=== PATIENT | male | born 1960 | race Caucasian/White ===

== ENCOUNTER 2022-07-11 00:58 | Inpatient (IN) ==
[2022-07-11] MEDS ORDERED: MECLIZINE HCL 25 MG TAB PO STA (01:10)
[2022-07-11] MEDS ORDERED: SODIUM CHLORIDE 0.9% 1000ML 1,000 ML IV ONE (01:10)
[2022-07-11 01:27] LABS: Basophils # (auto) 0.04 K/uL (0-0.2); Basophils % (auto) 0.4 %; Eosinophils # (auto) 0.14 K/uL (0-0.50); Eosinophils % (auto) 1.5 %; Hematocrit (blood only) 43.8 % (42.0-52.0); Hemoglobin 15.8 g/dl (14.0-18.0); Immature Granulocytes # (auto) 0.06 K/uL (0.01-0.20); Immature Granulocytes % (auto) 0.6 %; Lymphocytes # (auto) 2.46 K/uL (1.2-3.4); Lymphocytes % (auto) 26.1 %; Mean Corpuscular Hemoglobin 32.7 pg (25.0-34.0); Mean Corpuscular Hgb Conc 36.1 g/dL (32.0-36.0); Mean Corpuscular Volume 90.7 fL (80.0-100.0); Mean Platelet Volume 9.8 fL (9.4-12.4); Monocytes # (auto) 0.78 K/uL (0.11-0.59); Monocytes % (auto) 8.3 %; Neutrophils # (auto) 5.96 K/uL (1.40-6.50); Neutrophils % (auto) 63.1 %; Platelet Count 204 K/uL (130-400); RDW Coefficient of Variation 12.3 % (11.5-14.5); RDW Standard Deviation 40.5 fL (36.4-46.3); Red Blood Count 4.83 M/uL (4.70-6.10); White Blood Count 9.44 K/ul (4.8-10.8)
--- NOTE | 2022-07-11 01:27 | Emergency Department Note ---
History of Present Illness General Chief complaint: Dizziness Stated complaint: Nausea, Vomiting Time Seen by Provider: 07/11/22 01:01 History of Present Illness This 61-year-old male patient presents to the emergency department via EMS for evaluation of dizziness. He states at 10 PM tonight he developed acute onset of dizziness, nausea, and diaphoresis. He states he feels like both himself and the room are spinning. Had a more mild episode of dizziness about 1 month ago and was seen by his PCP with unremarkable work-up. That episode of dizziness quickly resolved with meclizine. He is not sure what work-up was performed. Upon review of the patient's medical record he had a brain MRI on 06/14/2022 that showed no acute intracranial abnormality. The patient denies any chest pain, shortness of breath, abdominal pain, fever, cough, or URI symptoms. No known injury or trauma. The patient was given Zofran 4 mg IV in the ambulance, but no improvement of his symptoms. He is not on any blood thinners. Home Medications Medication Instructions Recorded Confirmed Type netarsudil 0.02 %-latanoprost 1 drops ophthalmic (eye) QPM 04/26/19 07/11/22 History 0.005 % eye drops (Rocklatan) cholecalciferol (vitamin D3) 10 2,000 unit PO QAM 04/29/21 07/11/22 History mcg (400 unit) tablet (Vitamin D3) cyclobenzaprine 5 mg tablet 5 - 10 mg PO HS #60 tabs 05/24/22 07/11/22 Rx meclizine 25 mg tablet 25 mg PO TID #90 tabs 05/24/22 07/11/22 Rx atorvastatin 10 mg tablet 10 mg PO QPM #90 tabs 05/27/22 07/11/22 Rx omeprazole 20 mg capsule,delayed 20 mg PO QAM #90 caps 05/27/22 07/11/22 Rx release lisinopril 10 mg tablet 10 mg PO QAM #90 tabs 06/13/22 07/11/22 Rx Allergies Allergy/AdvReac Type Severity Reaction Status Date / Time ketorolac AdvReac Severe Hallucinati Verified 06/03/22 08:29 ng Past Med/Surg History Medical History Acid reflux Degenerative tear of left medial meniscus Glaucoma HTN (hypertension) Hyperlipidemia Superficial thrombophlebitis hx Surgical History History of colonoscopy History of esophagogastroduodenoscopy (EGD) History of open reduction and internal fixation (ORIF) procedure Left leg History of surgical removal of meniscus of knee S/P hernia surgery inguinal & umbilical repairs S/P left knee arthroscopy (~04/2020) S/P repair of hydrocele HX S/P wisdom tooth extraction HX Family History Father Diabetes Mother Dementia Other No family history of adverse response to anesthesia Denies family history of Ovarian cancer Prostate cancer Myocardial infarction Breast cancer Colorectal cancer Social History Smoking Status: Never smoker Second Hand Exposure: No; Do You Dip or Chew Tobacco: No; Hx Alcohol Use: Yes Alcohol type: beer, wine and hard liquor Alcohol Intake Frequency: 2-3 x/Week Hx Substance Use: No Preferred Language: Algerian Communication Ability: Effective Visual Impairment: No Limitations Hearing Ability: Hard of Hearing Irrigation Pump Installer Required: No Beliefs That Will Affect Care: None marital status: Current Living Situation: Alone Current Living Situation Comment: FRIEND LIVES HERE SOMETIMES current occupational status: employed 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 Physical Exam Vital Signs Vital Signs - 24 hr 07/11/22 01:06 07/11/22 01:09 07/11/22 01:38 Temperature 36.5 C Temperature Source Oral Pulse Rate 79 82 83 Pulse Rate from SpO2 Sensor Pulse Rhythm Regular Respiratory Rate 18 Respiratory Effort / Characteristics Non-Labored Spontaneous Respiratory Depth Normal Respiratory Pattern Regular Blood Pressure 181/103 H Blood Pressure Mean 129 Blood Pressure Position Sitting Pulse Oximetry 99 100 Oxygen Delivery Method Room Air Room Air Oxygen Flow Rate Sepsis Recent Fever Within 48 Hours No Sepsis New/Unexplained Change in Mental Status N/A Sepsis Action Taken by Nursing No Action Required 07/11/22 01:13 07/11/22 01:13 07/11/22 05:04 Temperature Temperature Source Pulse Rate 70 67 Pulse Rate from SpO2 Sensor 72 Pulse Rhythm Respiratory Rate 15 Respiratory Effort / Characteristics Respiratory Depth Respiratory Pattern Blood Pressure 180/98 H Blood Pressure Mean 125 Blood Pressure Position Pulse Oximetry 98 Oxygen Delivery Method Nasal Cannula Oxygen Flow Rate 2 Sepsis Recent Fever Within 48 Hours Sepsis New/Unexplained Change in Mental Status Sepsis Action Taken by Nursing 07/11/22 04:00 07/11/22 05:00 07/11/22 06:10 Temperature Temperature Source Pulse Rate 75 64 75 Pulse Rate from SpO2 Sensor 61 64 75 Pulse Rhythm Respiratory Rate 20 17 16 Respiratory Effort / Characteristics Respiratory Depth Respiratory Pattern Blood Pressure Blood Pressure Mean Blood Pressure Position Pulse Oximetry 97 97 98 Oxygen Delivery Method Nasal Cannula Nasal Cannula Nasal Cannula Oxygen Flow Rate 2 2 2 Sepsis Recent Fever Within 48 Hours Sepsis New/Unexplained Change in Mental Status Sepsis Action Taken by Nursing 07/11/22 06:10 07/11/22 06:30 07/11/22 06:30 Temperature Temperature Source Pulse Rate 80 Pulse Rate from SpO2 Sensor 80 Pulse Rhythm Respiratory Rate 20 Respiratory Effort / Characteristics Respiratory Depth Respiratory Pattern Blood Pressure 142/73 H 149/80 H Blood Pressure Mean 96 103 Blood Pressure Position Pulse Oximetry 98 Oxygen Delivery Method Nasal Cannula Oxygen Flow Rate 2 Sepsis Recent Fever Within 48 Hours Sepsis New/Unexplained Change in Mental Status Sepsis Action Taken by Nursing VITALS: Vitals are noted on the nurse's note and reviewed by myself. GENERAL: The patient appears uncomfortable and nauseous. Non toxic, no acute distress, non-diaphoretic. SKIN: Capillary refill <2 sec. EARS: External auditory canals clear, tympanic membranes pearly zambrano without erythema or effusion bilaterally. EYES: The patient was having trouble keeping his eyes opened because of increased dizziness with his eyes opened. PERRLA. Conjunctivae without injection, sclerae without icterus. Pulsatile horizontal nystagmus present. Negative HINTS exam. FACE: No facial droop. Normal strength and movement of the facial muscles as well as neck muscles. NOSE: Patent without discharge. MOUTH: Mucous membranes moist. Uvula midline. Airway patent. NECK: Supple without nuchal rigidity. No tenderness to palpation of the cervical spine or paraspinal muscles. HEART: Regular rate and rhythm without murmurs gallops or rubs. LUNGS: Clear to auscultation bilaterally without wheezes, rales or rhonchi. No retractions or accessory muscle use. ABDOMEN: Positive bowel sounds x 4. Normal tympanic percussion. Soft, nontender, without masses or organomegaly. Kowalski sign negative. No guarding or rebound tenderness. No focal RLQ or LLQ tenderness. MUSCULOSKELETAL: Full range of motion of the bilateral upper and lower extremities. Strength 5/5 and equal in the bilateral upper and lower extremities. Textile Colorist Formulator strength 5/5. Peripheral pulses 2+. No tenderness to palpation of the thoracic or lumbar spine or paraspinal muscles. No gross musculoskeletal defects. NEURO: The patient was alert and oriented to person place and time. Normal mental status exam. The patient was unable to open his eyes for any significant period of time due to the nystagmus and dizziness. Any movement of the patient caused significant increase in his symptoms. Therefore, I did not perform any testing on the patient outside of the bed. Course Administered Medications Discontinued Medications Sodium Chloride (Nss 1000ml) 1,000 mls @ 999 mls/hr IV .Q1H1M ONE Stop: 07/11/22 02:10 Last Infusion: 07/11/22 02:12 Dose: 0 mls/hr Documented By: Admin: 07/11/22 01:23 Dose: 999 mls/hr Documented By: Ioversol (Optiray 320 500ml) 111 ml IV ONCE ONE Stop: 07/11/22 02:41 Last Admin: 07/11/22 02:40 Dose: 111 ml Documented By: MARCY Lorazepam (Lorazepam 2 Mg/1 Ml Vial) 1 mg IV NOW STA Stop: 07/11/22 01:56 Last Admin: 07/11/22 02:10 Dose: 1 mg Documented By: Meclizine HCl (Meclizine Hcl 25 Mg Tab) 25 mg PO NOW STA Stop: 07/11/22 01:11 Last Admin: 07/11/22 01:21 Dose: 25 mg Documented By: Medical Decision Making Differential Diagnosis Differential diagnosis includes benign positional vertigo, dehydration, hypovolemia, anemia, tumor, infection, hypoglycemia, electrolyte abnormalities, cardiac sources, intracerebral event, toxicologic, neurologic, as well as other pathologies. Laboratory Data Attestation: I reviewed the patient's lab results. 07/11/22 01:14 07/11/22 01:14 Lab Results 07/11/22 07/11/22 07/11/22 Range/Units 01:14 01:14 01:14 WBC (4.8-10.8) K/ul RBC (4.70-6.10) M/uL Hgb (14.0-18.0) g/dl Hct (42.0-52.0) % MCV (80.0-100.0) fL MCH (25.0-34.0) pg MCHC (32.0-36.0) g/dL RDW Std Deviation (36.4-46.3) fL RDW Coeff of He (11.5-14.5) % Plt Count (130-400) K/uL MPV (9.4-12.4) fL Immature Gran % (Auto) % Neut % (Auto) % Lymph % (Auto) % [place] % (Auto) % Eos % (Auto) % Baso % (Auto) % Neut # (Auto) (1.40-6.50) K/uL Lymph # (Auto) (1.2-3.4) K/uL [place] # (Auto) (0.11-0.59) K/uL Eos # (Auto) (0-0.50) K/uL Baso # (Auto) (0-0.2) K/uL Immature Gran # (Auto) (0.01-0.20) K/uL PT (9.0-12.0) Seconds INR (0.9-1.1) APTT (21.0-31.0) Seconds PTT Ratio Sodium 137 (136-145) mmol/L Potassium 4.0 (3.5-5.1) mmol/L Chloride 104 (98-107) mmol/L Carbon Dioxide 24 (21-32) mmol/L Anion Gap 9 (3-11) BUN 21 (6-23) mg/dl Creatinine 1.12 (0.6-1.4) mg/dl Est Cr Clr Drug Dosing 88.6 ml/min Est GFR ( Amer) 81.7 ml/min Est GFR (Non-Af Amer) 70.5 ml/min BUN/Creatinine Ratio 18.8 (10-20) Glucose 118 H (70-99(Fasting)) mg/dl Calcium 8.8 (8.6-10.3) mg/dl Magnesium 1.9 (1.7-2.4) mg/dl Total Bilirubin 1.0 (0.2-1.0) mg/dl AST 25 (13-39) U/L ALT 27 (7-52) U/L Alkaline Phosphatase 84 (34-104) U/L Troponin I High Sens 3.9 (0-20) pg/ml Total Protein 7.1 (6.0-8.3) gm/dl Albumin 4.3 (3.4-5.0) gm/dl Globulin 2.8 (2.5-4.0) gm/dl Albumin/Globulin Ratio 1.5 (0.9-2) Vitamin B12 195 (180-914) pg/ml TSH 2.728 (0.300-4.500) uIu/ml Urine Color Urine Appearance (Clear) Urine pH (4.5-7.5) Ur Specific [place] (1.000-1.030) Urine Protein (Negative) Urine Glucose (UA) (Negative) Urine Ketones (Negative) Urine Blood (Negative) Urine Nitrite (Negative) Urine Bilirubin (Negative) Urine Urobilinogen (Negative) Ur Leukocyte Esterase (Negative) Urine Opiates Screen (Neg) Ur Methadone, Qual (Neg) Urine Barbiturates (Neg) Ur Phencyclidine (PCP) (Neg) U Amphetamin/Meth Scrn (Neg) MDMA (Ecstasy) Screen (Neg) U Benzodiazepines Scrn (Neg) Ur Cocaine Metabolite (Neg) U Marijuana (THC) Screen (Neg) Ethyl Alcohol mg/dL (<10.0) mg/dl SARS-CoV-2, RNA, NAAT (NEGATIVE) 07/11/22 07/11/22 07/11/22 Range/Units 01:14 01:14 01:28 WBC 9.44 (4.8-10.8) K/ul RBC 4.83 (4.70-6.10) M/uL Hgb 15.8 (14.0-18.0) g/dl Hct 43.8 (42.0-52.0) % MCV 90.7 (80.0-100.0) fL MCH 32.7 (25.0-34.0) pg MCHC 36.1 H (32.0-36.0) g/dL RDW Std Deviation 40.5 (36.4-46.3) fL RDW Coeff of He 12.3 (11.5-14.5) % Plt Count 204 (130-400) K/uL MPV 9.8 (9.4-12.4) fL Immature Gran % (Auto) 0.6 % Neut % (Auto) 63.1 % Lymph % (Auto) 26.1 % [place] % (Auto) 8.3 % Eos % (Auto) 1.5 % Baso % (Auto) 0.4 % Neut # (Auto) 5.96 (1.40-6.50) K/uL Lymph # (Auto) 2.46 (1.2-3.4) K/uL [place] # (Auto) 0.78 H (0.11-0.59) K/uL Eos # (Auto) 0.14 (0-0.50) K/uL Baso # (Auto) 0.04 (0-0.2) K/uL Immature Gran # (Auto) 0.06 (0.01-0.20) K/uL PT 11.4 (9.0-12.0) Seconds INR 1.0 (0.9-1.1) APTT 23.5 (21.0-31.0) Seconds PTT Ratio 0.8 Sodium (136-145) mmol/L Potassium (3.5-5.1) mmol/L Chloride (98-107) mmol/L Carbon Dioxide (21-32) mmol/L Anion Gap (3-11) BUN (6-23) mg/dl Creatinine (0.6-1.4) mg/dl Est Cr Clr Drug Dosing ml/min Est GFR ( Amer) ml/min Est GFR (Non-Af Amer) ml/min BUN/Creatinine Ratio (10-20) Glucose (70-99(Fasting)) mg/dl Calcium (8.6-10.3) mg/dl Magnesium (1.7-2.4) mg/dl Total Bilirubin (0.2-1.0) mg/dl AST (13-39) U/L ALT (7-52) U/L Alkaline Phosphatase (34-104) U/L Troponin I High Sens (0-20) pg/ml Total Protein (6.0-8.3) gm/dl Albumin (3.4-5.0) gm/dl Globulin (2.5-4.0) gm/dl Albumin/Globulin Ratio (0.9-2) Vitamin B12 (180-914) pg/ml TSH (0.300-4.500) uIu/ml Urine Color Urine Appearance (Clear) Urine pH (4.5-7.5) Ur Specific [place] (1.000-1.030) Urine Protein (Negative) Urine Glucose (UA) (Negative) Urine Ketones (Negative) Urine Blood (Negative) Urine Nitrite (Negative) Urine Bilirubin (Negative) Urine Urobilinogen (Negative) Ur Leukocyte Esterase (Negative) Urine Opiates Screen (Neg) Ur Methadone, Qual (Neg) Urine Barbiturates (Neg) Ur Phencyclidine (PCP) (Neg) U Amphetamin/Meth Scrn (Neg) MDMA (Ecstasy) Screen (Neg) U Benzodiazepines Scrn (Neg) Ur Cocaine Metabolite (Neg) U Marijuana (THC) Screen (Neg) Ethyl Alcohol mg/dL < 10.0 (<10.0) mg/dl SARS-CoV-2, RNA, NAAT (NEGATIVE) 07/11/22 07/11/22 07/11/22 Range/Units 04:20 04:20 06:10 WBC (4.8-10.8) K/ul RBC (4.70-6.10) M/uL Hgb (14.0-18.0) g/dl Hct (42.0-52.0) % MCV (80.0-100.0) fL MCH (25.0-34.0) pg MCHC (32.0-36.0) g/dL RDW Std Deviation (36.4-46.3) fL RDW Coeff of He (11.5-14.5) % Plt Count (130-400) K/uL MPV (9.4-12.4) fL Immature Gran % (Auto) % Neut % (Auto) % Lymph % (Auto) % [place] % (Auto) % Eos % (Auto) % Baso % (Auto) % Neut # (Auto) (1.40-6.50) K/uL Lymph # (Auto) (1.2-3.4) K/uL [place] # (Auto) (0.11-0.59) K/uL Eos # (Auto) (0-0.50) K/uL Baso # (Auto) (0-0.2) K/uL Immature Gran # (Auto) (0.01-0.20) K/uL PT (9.0-12.0) Seconds INR (0.9-1.1) APTT (21.0-31.0) Seconds PTT Ratio Sodium (136-145) mmol/L Potassium (3.5-5.1) mmol/L Chloride (98-107) mmol/L Carbon Dioxide (21-32) mmol/L Anion Gap (3-11) BUN (6-23) mg/dl Creatinine (0.6-1.4) mg/dl Est Cr Clr Drug Dosing ml/min Est GFR ( Amer) ml/min Est GFR (Non-Af Amer) ml/min BUN/Creatinine Ratio (10-20) Glucose (70-99(Fasting)) mg/dl Calcium (8.6-10.3) mg/dl Magnesium (1.7-2.4) mg/dl Total Bilirubin (0.2-1.0) mg/dl AST (13-39) U/L ALT (7-52) U/L Alkaline Phosphatase (34-104) U/L Troponin I High Sens (0-20) pg/ml Total Protein (6.0-8.3) gm/dl Albumin (3.4-5.0) gm/dl Globulin (2.5-4.0) gm/dl Albumin/Globulin Ratio (0.9-2) Vitamin B12 (180-914) pg/ml TSH (0.300-4.500) uIu/ml Urine Color Yellow Urine Appearance Clear (Clear) Urine pH 8.5 H (4.5-7.5) Ur Specific [place] 1.045 H (1.000-1.030) Urine Protein Negative (Negative) Urine Glucose (UA) Negative (Negative) Urine Ketones Negative (Negative) Urine Blood Negative (Negative) Urine Nitrite Negative (Negative) Urine Bilirubin Negative (Negative) Urine Urobilinogen Negative (Negative) Ur Leukocyte Esterase Negative (Negative) Urine Opiates Screen Neg (Neg) Ur Methadone, Qual Neg (Neg) Urine Barbiturates Neg (Neg) Ur Phencyclidine (PCP) Neg (Neg) U Amphetamin/Meth Scrn Neg (Neg) MDMA (Ecstasy) Screen Neg (Neg) U Benzodiazepines Scrn Neg (Neg) Ur Cocaine Metabolite Neg (Neg) U Marijuana (THC) Screen Neg (Neg) Ethyl Alcohol mg/dL (<10.0) mg/dl SARS-CoV-2, RNA, NAAT NEGATIVE (NEGATIVE) Imaging Data My Impression: Chest x-ray was interpreted by myself and showed significant cardiomegaly without obvious infiltrates. Radiology report is still pending. Radiologist's Impression: Head CT 07/11/22 01:11 Exam(s): CT HEAD Without Contrast EXAM: CT Head Without Intravenous Contrast CLINICAL HISTORY: Nystagmus and dizziness. TECHNIQUE: Axial computed tomography images of the head/brain without intravenous contrast. CTDI is 35.07 mGy and DLP is 614.27 mGy-cm. Automated exposure control was utilized for the study. A dose lowering technique was utilized adhering to the principles of ALARA. COMPARISON: MRI brain 06/14/2022 FINDINGS: Brain: No intracranial hemorrhage, mass-effect or midline shift. No abnormal extra axial fluid. No evidence of acute infarct. Mild periventricular white matter hypodensities are most consistent with chronic microangiopathy. Ventricles: Unremarkable. No ventriculomegaly. Bones/joints: Unremarkable. No acute fracture. Soft tissues: Unremarkable. Sinuses: Unremarkable as visualized. No acute sinusitis. Mastoid air cells: Unremarkable as visualized. No mastoid effusion. IMPRESSION: No acute intracranial finding. Electronically signed by: Lety Fay MD 07/11/22 03:23 AM Neck CTA 07/11/22 01:15 Exam(s): CTA NECK With Contrast IV Amt: 112ml Optiray 320 EXAM: CT Angiography Neck With Intravenous Contrast CLINICAL HISTORY: Nystagmus and dizziness. TECHNIQUE: Routine carotid CT angiography protocol was performed with intravenous contrast. NASCET criteria using the distal ICAs for comparison were used for evaluation of stenoses. CTDI is 62.28 mGy and DLP is 655.02 mGy-cm. Automated exposure control was utilized for the study. A dose lowering technique was utilized adhering to the principles of ALARA. MIP reconstructed images were created and reviewed. CONTRAST: Patient received 112ml Optiray 320 of IV contrast COMPARISON: None. FINDINGS: VASCULATURE: Right common carotid artery: Unremarkable. No occlusion or significant stenosis. No dissection. Right internal carotid artery: Mild atherosclerosis of the right carotid bulb. No significant stenosis. No dissection. Right external carotid artery: Unremarkable. No occlusion. Right vertebral artery: Unremarkable. No occlusion or significant stenosis. No dissection. Left common carotid artery: Unremarkable. No occlusion or significant stenosis. No dissection. Left internal carotid artery: Mild atherosclerosis of the left carotid bulb. No significant stenosis. No dissection. Left external carotid artery: Unremarkable. No occlusion. Left vertebral artery: Unremarkable. No occlusion or significant stenosis. No dissection. NECK: Bones/joints: Unremarkable. Soft tissues: Unremarkable. Lung apices: Clear. CAROTID STENOSIS REFERENCE USING NASCET CRITERIA: % ICA stenosis = (1 - narrowest ICA diameter/diameter of distal cervical ICA) x 100. Mild - <50% stenosis. Moderate - 50-69% stenosis. Severe - 70-94% stenosis. Near occlusion - 95-99% stenosis. Occluded - 100% stenosis. IMPRESSION: No acute findings in the arteries of the neck. Electronically signed by: Lety Fay MD 07/11/22 03:26 AM Final Report EXAM: CT Angiography Head With Intravenous Contrast CLINICAL HISTORY: DIZZINESS, NYSTAGMUS. TECHNIQUE: Axial computed tomographic angiography images of the head with intravenous contrast. CTDI is 97.35 mGy and DLP is 1269.29 mGy-cm. Automated exposure control was utilized for the study. A dose lowering technique was utilized adhering to the principles of ALARA. MIP reconstructed images were created and reviewed. CONTRAST: Patient received 110ml Optiray 320 of IV contrast COMPARISON: CT head w/o and CTA neck done same time FINDINGS: Right internal carotid artery: No acute findings. Intracranial segment is patent with no significant stenosis. No aneurysm. Right anterior cerebral artery: Unremarkable. No occlusion or significant stenosis. No aneurysm. Right middle cerebral artery: Unremarkable. No occlusion or significant stenosis. No aneurysm. Right posterior cerebral artery: Unremarkable. No occlusion or significant stenosis. No aneurysm. Right vertebral artery: Unremarkable as visualized. Left internal carotid artery: No acute findings. Intracranial segment is patent with no significant stenosis. No aneurysm. Left anterior cerebral artery: Unremarkable. No occlusion or significant stenosis. No aneurysm. Left middle cerebral artery: Unremarkable. No occlusion or significant stenosis. No aneurysm. Left posterior cerebral artery: Unremarkable. No occlusion or significant stenosis. No aneurysm. Left vertebral artery: Unremarkable as visualized. Basilar artery: Unremarkable. No occlusion or significant stenosis. No aneurysm. IMPRESSION: Negative CT angiogram of the head. Radiologist: Hailey Davis MD Electronically Signed: 07/11/22 06:54 Study ready at 04:41 and initial results transmitted at 06:54 [facility] Narrative I examined the patient. An IV lock was placed and labs were drawn. He was given 1 L normal saline solution bolus. He had already been given Zofran by EMS without any change in his symptoms. He was given meclizine 25 mg p.o. without change in his symptoms. He was then given Ativan 1 mg IV which allowed him to rest in the bed, but he still had significant dizziness anytime he tried to open his eyes or with any movement in the bed. The patient had significant nystagmus on exam, but negative HINTS test. There was some improvement of the nystagmus after the Ativan, but it persisted. I reviewed the patient's past medical record including his MRI of the brain from 06/14/2022 which was normal. Continuous laboratory monitor: Order was placed for continuous laboratory monitor. Patient was placed on the laboratory monitor and continuous pulse ox. Patient was noted to be in normal sinus rhythm at an initial rate of 96 bpm per my interpretation. EKG was interpreted by myself as sinus rhythm at 71 bpm with occasional PVCs, but no acute ST or T wave changes. CBC without leukocytosis or anemia. Coags were normal. Glucose 118, but CMP otherwise normal. High-sensitivity troponin was normal. TSH normal. Vitamin B12 low at 195. Alcohol level less than 10. COVID was negative. Chest x-ray was interpreted by myself and showed significant cardiomegaly without obvious infiltrates. Radiology report is still pending. The patient denies any known history of cardiomegaly. He denies any known history of heart problems other than his high blood pressure. I spoke with case management to obtain the patient's records from [facility]. Upon review of the patient's past medical history both through [facility] as well as through [facility] records the patient has not had a previous chest x-ray in the system. The patient had an echo and stress test in 2006 that was normal and did not show any evidence of cardiomegaly. CT scan of the head without contrast, CTA of the head, and CTA of the neck were reviewed by myself and read by stat rad as above and show no acute abnormalities. The patient's dizziness and nystagmus did improve following the meclizine and Ativan, but he still continued with significant dizziness. He was unable to sit up or stand without significant dizziness and instability. Even moving his head or opening his eyes for long periods of time caused increased dizziness. The patient also has a cardiomegaly which appears to be new. Therefore, I feel the patient requires admission for further evaluation and treatment. I spoke with the on-call hospitalist who agreed to admit the patient for further evaluation and treatment. The patient's care was transferred in stable condition. Impression & Plan Dizziness, Nystagmus, Cardiomegaly Discharge Plan Visit Data Chief Complaint: Dizziness Stated Complaint: Nausea, Vomiting ED Provider: Nuvia Villegas ED Midlevel Provider: Neha Warner Discharge Problem: Dizziness, Nystagmus, Cardiomegaly Patient Disposition: Admitted As Inpatient Condition: Good Forms Stand Alone Forms: My [facility] Prescriptions Prescriptions: No Action atorvastatin 10 mg tablet 10 mg PO QPM Qty: 90 3RF omeprazole 20 mg capsule,delayed release(DR/EC) 20 mg PO QAM Qty: 90 3RF lisinopril 10 mg tablet 10 mg PO QAM Qty: 90 3RF meclizine 25 mg tablet 25 mg PO TID Qty: 90 1RF cyclobenzaprine 5 mg tablet 5 - 10 mg PO HS Qty: 60 0RF Rocklatan 0.02-0.005 % drops 1 drops OP QPM Patient Comments: BOTH EYES cholecalciferol (vitamin D3) [Vitamin D3] 10 mcg (400 unit) tablet 2,000 unit PO QAM Referrals Referrals: Troy Keith, [Primary Care Provider] -
[2022-07-11 01:46] LABS: Albumin Globulin Ratio 1.5 (0.9-2); Albumin Level 4.3 gm/dl (3.4-5.0); BUN Creatinine Ratio 18.8 (10-20); Calcium 8.8 mg/dl (8.6-10.3); Creatinine Clr Calc Pharmacy 88.6 ml/min; Est GFR (African American) 81.7 ml/min; Est GFR (Non-African American) 70.5 ml/min; Globulin 2.8 gm/dl (2.5-4.0); Magnesium 1.9 mg/dl (1.7-2.4); Total Protein 7.1 gm/dl (6.0-8.3)
[2022-07-11 01:53] LABS: Troponin I High Sensitivity 3.9 pg/ml (0-20)
[2022-07-11] MEDS ORDERED: LORazepam 2 MG/1 ML VIAL IV STA (01:55)
[2022-07-11 02:06] LABS: Partial Thromboplastin Ratio 0.8; Partial Thromboplastin Time 23.5 Seconds (21.0-31.0); Prothrombin Time 11.4 Seconds (9.0-12.0)
[2022-07-11] MEDS ORDERED: OPTIRAY 320 500ml IV ONE (02:40)
--- NOTE | 2022-07-11 03:24 | CT Scan Report ---
Exam(s): CT HEAD Without Contrast EXAM: CT Head Without Intravenous Contrast CLINICAL HISTORY: Nystagmus and dizziness. TECHNIQUE: Axial computed tomography images of the head/brain without intravenous contrast. CTDI is 35.07 mGy and DLP is 614.27 mGy-cm. Automated exposure control was utilized for the study. A dose lowering technique was utilized adhering to the principles of ALARA. COMPARISON: MRI brain 06/14/2022 FINDINGS: Brain: No intracranial hemorrhage, mass-effect or midline shift. No abnormal extra axial fluid. No evidence of acute infarct. Mild periventricular white matter hypodensities are most consistent with chronic microangiopathy. Ventricles: Unremarkable. No ventriculomegaly. Bones/joints: Unremarkable. No acute fracture. Soft tissues: Unremarkable. Sinuses: Unremarkable as visualized. No acute sinusitis. Mastoid air cells: Unremarkable as visualized. No mastoid effusion. IMPRESSION: No acute intracranial finding. Electronically signed by: Lety Fay MD 07/11/22 03:23 AM
--- NOTE | 2022-07-11 03:27 | CT Scan Report ---
Exam(s): CTA NECK With Contrast IV Amt: 112ml Optiray 320 EXAM: CT Angiography Neck With Intravenous Contrast CLINICAL HISTORY: Nystagmus and dizziness. TECHNIQUE: Routine carotid CT angiography protocol was performed with intravenous contrast. NASCET criteria using the distal ICAs for comparison were used for evaluation of stenoses. CTDI is 62.28 mGy and DLP is 655.02 mGy-cm. Automated exposure control was utilized for the study. A dose lowering technique was utilized adhering to the principles of ALARA. MIP reconstructed images were created and reviewed. CONTRAST: Patient received 112ml Optiray 320 of IV contrast COMPARISON: None. FINDINGS: VASCULATURE: Right common carotid artery: Unremarkable. No occlusion or significant stenosis. No dissection. Right internal carotid artery: Mild atherosclerosis of the right carotid bulb. No significant stenosis. No dissection. Right external carotid artery: Unremarkable. No occlusion. Right vertebral artery: Unremarkable. No occlusion or significant stenosis. No dissection. Left common carotid artery: Unremarkable. No occlusion or significant stenosis. No dissection. Left internal carotid artery: Mild atherosclerosis of the left carotid bulb. No significant stenosis. No dissection. Left external carotid artery: Unremarkable. No occlusion. Left vertebral artery: Unremarkable. No occlusion or significant stenosis. No dissection. NECK: Bones/joints: Unremarkable. Soft tissues: Unremarkable. Lung apices: Clear. CAROTID STENOSIS REFERENCE USING NASCET CRITERIA: % ICA stenosis = (1 - narrowest ICA diameter/diameter of distal cervical ICA) x 100. Mild - <50% stenosis. Moderate - 50-69% stenosis. Severe - 70-94% stenosis. Near occlusion - 95-99% stenosis. Occluded - 100% stenosis. IMPRESSION: No acute findings in the arteries of the neck. Electronically signed by: Lety Fay MD 07/11/22 03:26 AM
[2022-07-11 05:10] LABS: Appearance Urine Clear (Clear); Bilirubin Urine Negative (Negative); Blood Urine Negative (Negative); Color Urine Yellow; Glucose Urine UA Negative (Negative); Ketones Urine Negative (Negative); Leukocyte Esterase Urine Negative (Negative); Nitrite Urine Negative (Negative); Protein Urine Negative (Negative); Specific Gravity Urine 1.045 (1.000-1.030); Urobilinogen Urine Negative (Negative); pH Urine 8.5 (4.5-7.5)
[2022-07-11 05:41] LABS: Amphetamines+Metham, Urine Neg (Neg); Barbiturates, Urine Neg (Neg); Benzodiazepine, Urine Neg (Neg); Cocaine, Urine Neg (Neg); MDMA (Ecstacy), Urine Neg (Neg); Methadone, Urine Neg (Neg); Opiate, Urine Neg (Neg); Phencyclidine, Urine Neg (Neg)
--- NOTE | 2022-07-11 06:46 | History & Physical Report ---
Date of Service July 11, 2022 Assessment & Plan (1) Dizziness: Plan: Suspect vertigo. CT head, CTA Head/Neck normal -Meclizine TID -PT/OT (2) Hypertension: Plan: Chronic. Mildly elevated at 149/80 -Continue Lisinopril -Monitor (3) Dyslipidemia: Plan: Chronic -Continue Atorvastatin 10mg po qPM (4) GERD (gastroesophageal reflux disease): Plan: Chronic -Continue Pepcid History of Present Illness Chief Complaint: vertigo Primary Care Provider: Troy Keith DO Otilio Bowen is a pleasant 61yo female with history of HTN, HLP and GERD presenting with acute onset of dizziness. Patient was sitting on the couch around 22:00 when he developed acute onset of dizziness - like the room was spinning - as well as nausea, diaphoresis. He tried to go to bed and had persistence of symptoms therefore came to the ER. He denies fever but has had some chills. Denies chest pain. No positional component. Patient had similar symptoms approximately 1 month ago. He had an outpatient workup including a normal MRI brain on 06/14/22. He was given Meclizine at that time and had resolution of symptoms. In the ER patient is afebrile, hypertensive ER Course: Zofran Ativan Meclizine Allergies Allergy/AdvReac Type Severity Reaction Status Date / Time ketorolac AdvReac Severe Hallucinati Verified 06/03/22 08:29 ng Home Medications Medication Instructions Recorded Confirmed Type netarsudil 0.02 %-latanoprost 1 drops ophthalmic (eye) QPM 04/26/19 07/11/22 History 0.005 % eye drops (Wisemanlatan) cholecalciferol (vitamin D3) 10 2,000 unit PO QAM 04/29/21 07/11/22 History mcg (400 unit) tablet (Vitamin D3) cyclobenzaprine 5 mg tablet 5 - 10 mg PO HS #60 tabs 05/24/22 07/11/22 Rx meclizine 25 mg tablet 25 mg PO TID #90 tabs 05/24/22 07/11/22 Rx atorvastatin 10 mg tablet 10 mg PO QPM #90 tabs 05/27/22 07/11/22 Rx omeprazole 20 mg capsule,delayed 20 mg PO QAM #90 caps 05/27/22 07/11/22 Rx release lisinopril 10 mg tablet 10 mg PO QAM #90 tabs 06/13/22 07/11/22 Rx Past Med/Surg History Medical History Acid reflux Degenerative tear of left medial meniscus Glaucoma HTN (hypertension) Hyperlipidemia Superficial thrombophlebitis hx Surgical History History of colonoscopy History of esophagogastroduodenoscopy (EGD) History of open reduction and internal fixation (ORIF) procedure Left leg History of surgical removal of meniscus of knee S/P hernia surgery inguinal & umbilical repairs S/P left knee arthroscopy (~04/2020) S/P repair of hydrocele HX S/P wisdom tooth extraction HX Family History Father Diabetes Mother Dementia Other No family history of adverse response to anesthesia Denies family history of Ovarian cancer Prostate cancer Myocardial infarction Breast cancer Colorectal cancer Social History Smoking Status: Never smoker Second Hand Exposure: No; Do You Dip or Chew Tobacco: No; Hx Alcohol Use: Yes Alcohol type: beer, wine and hard liquor Alcohol Intake Frequency: 2-3 x/Week Hx Substance Use: No Preferred Language: Luxembourger Communication Ability: Effective Visual Impairment: No Limitations Hearing Ability: Hard of Hearing Rotary Drier Feeder Required: No Beliefs That Will Affect Care: None marital status: Current Living Situation: Alone Current Living Situation Comment: FRIEND LIVES HERE SOMETIMES current occupational status: employed current occupation: [employer] How many Children do You have: 2 How many Children do You have Comment: daughters Feels Safe at Home: Yes Childhood Exposure to Second-Hand Smoke: No Diet: regular caffeine: No during the past year weight has: remained stable Dental Care, Regularly: Yes Physical Activity Frequency: Daily Seatbelt Use: always Sunscreen Use: No Assistive Devices: Contacts Review of Systems Review of Systems: All systems reviewed & are unremarkable except as noted in HPI & below Physical Exam Physical Exam: General: patient resting comfortably, NAD, non-toxic in appearance, AA&O x 4 Skin: warm, dry, intact, no rashes or lesions HEENT: NC/AT, PERRL, EOMI, anicteric sclera, conjunctiva without injection, external ear normal to inspection and nontender, nares patent, moist mucus membranes, dentition intact, no oropharyngeal lesions, neck supple, trachea midline, no LAD, no thyromegaly, no JVD, +nystagmus Heart: +S1/S2, regular, no m/r/g Lungs: equal air entry bilaterally, no rales/rhonchi/wheezes Abd: +BS, soft, NT/ND, no masses/organomegaly/ascites Ext: warm, 2+ pulses in UE/LE bilaterally, no clubbing/cyanosis or edema Neuro: nonfocal, patient AA&O x 4, speech intact, no facial droop, moving all extremities on command with equal strength 5/5 Results & Data Results & Data Vital Signs (Past 12 Hours) Vital Signs Temp Pulse Resp BP Pulse Ox O2 Del Method O2 Flow Rate 07/11/22 05:04 67 07/11/22 01:13 70 15 98 Nasal Cannula 2 07/11/22 01:13 180/98 H 07/11/22 01:38 83 100 Room Air 07/11/22 01:09 36.5 C 82 18 181/103 H 99 Room Air 07/11/22 01:06 79 Laboratory Results Laboratory Results WBC 9.44 K/ul (4.8-10.8) 07/11/22 01:14 RBC 4.83 M/uL (4.70-6.10) 07/11/22 01:14 Hgb 15.8 g/dl (14.0-18.0) 07/11/22 01:14 Hct 43.8 % (42.0-52.0) 07/11/22 01:14 MCV 90.7 fL (80.0-100.0) 07/11/22 01:14 MCH 32.7 pg (25.0-34.0) 07/11/22 01:14 MCHC 36.1 g/dL (32.0-36.0) H 07/11/22 01:14 RDW Std Deviation 40.5 fL (36.4-46.3) 07/11/22 01:14 RDW Coeff of He 12.3 % (11.5-14.5) 07/11/22 01:14 Plt Count 204 K/uL (130-400) 07/11/22 01:14 MPV 9.8 fL (9.4-12.4) 07/11/22 01:14 Immature Gran % (Auto) 0.6 % 07/11/22 01:14 Neut % (Auto) 63.1 % 07/11/22 01:14 Lymph % (Auto) 26.1 % 07/11/22 01:14 [place] % (Auto) 8.3 % 07/11/22 01:14 Eos % (Auto) 1.5 % 07/11/22 01:14 Baso % (Auto) 0.4 % 07/11/22 01:14 Neut # (Auto) 5.96 K/uL (1.40-6.50) 07/11/22 01:14 Lymph # (Auto) 2.46 K/uL (1.2-3.4) 07/11/22 01:14 Shelby # (Auto) 0.78 K/uL (0.11-0.59) H 07/11/22 01:14 Eos # (Auto) 0.14 K/uL (0-0.50) 07/11/22 01:14 Baso # (Auto) 0.04 K/uL (0-0.2) 07/11/22 01:14 Immature Gran # (Auto) 0.06 K/uL (0.01-0.20) 07/11/22 01:14 PT 11.4 Seconds (9.0-12.0) 07/11/22 01:14 INR 1.0 (0.9-1.1) 07/11/22 01:14 APTT 23.5 Seconds (21.0-31.0) 07/11/22 01:14 PTT Ratio 0.8 07/11/22 01:14 Sodium 137 mmol/L (136-145) 07/11/22 01:14 Potassium 4.0 mmol/L (3.5-5.1) 07/11/22 01:14 Chloride 104 mmol/L (98-107) 07/11/22 01:14 Carbon Dioxide 24 mmol/L (21-32) 07/11/22 01:14 Anion Gap 9 (3-11) 07/11/22 01:14 BUN 21 mg/dl (6-23) 07/11/22 01:14 Creatinine 1.12 mg/dl (0.6-1.4) 07/11/22 01:14 Est Cr Clr Drug Dosing 88.6 ml/min 07/11/22 01:14 Est GFR ( Amer) 81.7 ml/min 07/11/22 01:14 Est GFR (Non-Af Amer) 70.5 ml/min 07/11/22 01:14 BUN/Creatinine Ratio 18.8 (10-20) 07/11/22 01:14 Glucose 118 mg/dl (70-99(Fasting)) H 07/11/22 01:14 Calcium 8.8 mg/dl (8.6-10.3) 07/11/22 01:14 Magnesium 1.9 mg/dl (1.7-2.4) 07/11/22 01:14 Total Bilirubin 1.0 mg/dl (0.2-1.0) 07/11/22 01:14 AST 25 U/L (13-39) 07/11/22 01:14 ALT 27 U/L (7-52) 07/11/22 01:14 Alkaline Phosphatase 84 U/L (34-104) 07/11/22 01:14 Troponin I High Sens 3.9 pg/ml (0-20) 07/11/22 01:14 Total Protein 7.1 gm/dl (6.0-8.3) 07/11/22 01:14 Albumin 4.3 gm/dl (3.4-5.0) 07/11/22 01:14 Globulin 2.8 gm/dl (2.5-4.0) 07/11/22 01:14 Albumin/Globulin Ratio 1.5 (0.9-2) 07/11/22 01:14 Vitamin B12 195 pg/ml (180-914) 07/11/22 01:14 TSH 2.728 uIu/ml (0.300-4.500) 07/11/22 01:14 Urine Color Yellow 07/11/22 04:20 Urine Appearance Clear (Clear) 07/11/22 04:20 Urine pH 8.5 (4.5-7.5) H 07/11/22 04:20 Ur Specific [place] 1.045 (1.000-1.030) H 07/11/22 04:20 Urine Protein Negative (Negative) 07/11/22 04:20 Urine Glucose (UA) Negative (Negative) 07/11/22 04:20 Urine Ketones Negative (Negative) 07/11/22 04:20 Urine Blood Negative (Negative) 07/11/22 04:20 Urine Nitrite Negative (Negative) 07/11/22 04:20 Urine Bilirubin Negative (Negative) 07/11/22 04:20 Urine Urobilinogen Negative (Negative) 07/11/22 04:20 Ur Leukocyte Esterase Negative (Negative) 07/11/22 04:20 Urine Opiates Screen Neg (Neg) 07/11/22 04:20 Ur Methadone, Qual Neg (Neg) 07/11/22 04:20 Urine Barbiturates Neg (Neg) 07/11/22 04:20 Ur Phencyclidine (PCP) Neg (Neg) 07/11/22 04:20 U Amphetamin/Meth Scrn Neg (Neg) 07/11/22 04:20 MDMA (Ecstasy) Screen Neg (Neg) 07/11/22 04:20 U Benzodiazepines Scrn Neg (Neg) 07/11/22 04:20 Ur Cocaine Metabolite Neg (Neg) 07/11/22 04:20 U Marijuana (THC) Screen Neg (Neg) 07/11/22 04:20 Ethyl Alcohol mg/dL < 10.0 mg/dl (<10.0) 07/11/22 01:28 SARS-CoV-2, RNA, NAAT NEGATIVE (NEGATIVE) 07/11/22 06:[address] 07/11/22 01:11 Exam(s): CT HEAD Without Contrast EXAM: CT Head Without Intravenous Contrast CLINICAL HISTORY: Nystagmus and dizziness. TECHNIQUE: Axial computed tomography images of the head/brain without intravenous contrast. CTDI is 35.07 mGy and DLP is 614.27 mGy-cm. Automated exposure control was utilized for the study. A dose lowering technique was utilized adhering to the principles of ALARA. COMPARISON: MRI brain 06/14/2022 FINDINGS: Brain: No intracranial hemorrhage, mass-effect or midline shift. No abnormal extra axial fluid. No evidence of acute infarct. Mild periventricular white matter hypodensities are most consistent with chronic microangiopathy. Ventricles: Unremarkable. No ventriculomegaly. Bones/joints: Unremarkable. No acute fracture. Soft tissues: Unremarkable. Sinuses: Unremarkable as visualized. No acute sinusitis. Mastoid air cells: Unremarkable as visualized. No mastoid effusion. IMPRESSION: No acute intracranial finding. Electronically signed by: Lety Fay MD 07/11/22 03:23 AM Neck CTA 07/11/22 01:15 Exam(s): CTA NECK With Contrast IV Amt: 112ml Optiray 320 EXAM: CT Angiography Neck With Intravenous Contrast CLINICAL HISTORY: Nystagmus and dizziness. TECHNIQUE: Routine carotid CT angiography protocol was performed with intravenous contrast. NASCET criteria using the distal ICAs for comparison were used for evaluation of stenoses. CTDI is 62.28 mGy and DLP is 655.02 mGy-cm. Automated exposure control was utilized for the study. A dose lowering technique was utilized adhering to the principles of ALARA. MIP reconstructed images were created and reviewed. CONTRAST: Patient received 112ml Optiray 320 of IV contrast COMPARISON: None. FINDINGS: VASCULATURE: Right common carotid artery: Unremarkable. No occlusion or significant stenosis. No dissection. Right internal carotid artery: Mild atherosclerosis of the right carotid bulb. No significant stenosis. No dissection. Right external carotid artery: Unremarkable. No occlusion. Right vertebral artery: Unremarkable. No occlusion or significant stenosis. No dissection. Left common carotid artery: Unremarkable. No occlusion or significant stenosis. No dissection. Left internal carotid artery: Mild atherosclerosis of the left carotid bulb. No significant stenosis. No dissection. Left external carotid artery: Unremarkable. No occlusion. Left vertebral artery: Unremarkable. No occlusion or significant stenosis. No dissection. NECK: Bones/joints: Unremarkable. Soft tissues: Unremarkable. Lung apices: Clear. CAROTID STENOSIS REFERENCE USING NASCET CRITERIA: % ICA stenosis = (1 - narrowest ICA diameter/diameter of distal cervical ICA) x 100. Mild - <50% stenosis. Moderate - 50-69% stenosis. Severe - 70-94% stenosis. Near occlusion - 95-99% stenosis. Occluded - 100% stenosis. IMPRESSION: No acute findings in the arteries of the neck. Electronically signed by: Lety Fay MD 07/11/22 03:26 AM PG Care Time/CCT Total # of Minutes Spent Total Time Spent with Patient: Total time spent is greater than 50% in coordination of care (as documented) at patient's floor/unit and/or counseling patient: Coding Level of Care Code 60968 INT INP/OBS CARE 2/55MIN Diagnoses Dizziness R42 Hypertension I10 Dyslipidemia E78.5 GERD (gastroesophageal reflux disease) K21.9
--- NOTE | 2022-07-11 07:48 | XRay Report ---
XR chest 1V portable CLINICAL HISTORY: dizziness TECHNIQUE: Single frontal radiograph of the chest was obtained. Comparison: None available at the time of this dictation. FINDINGS: No lines and tubes are seen. Cardiomegaly is noted. The lungs are clear. No evidence of pleural effus ion or pneumothorax. IMPRESSION: No acute chest disease. ACT 112: Negative or not required by law. Electronically signed by: Ponce Benoit M.D. 07/11/2022 7:47 AM
--- NOTE | 2022-07-11 08:42 | CT Scan Report ---
CT angio head w con CLINICAL HISTORY: 61 years-old Male with nystagmus, dizziness. Acute dizziness with nausea COMPARISON STUDY: Head CT of same day, brain MRI 06/14/2022 TECHNIQUE: Following the IV administration of 112 cc of Optiray, CT angiogram of the brain was perfor med from the skull base to the vertex. Images are reviewed in the axial, sagittal, and coronal planes . 3-D MIPS images are created and assessed. IV contrast was administered without complication. All me asurements were obtained according to NASCET criteria. A dose lowering technique was utilized adherin g to the principles of ALARA. FINDINGS: CT ANGIOGRAM OF THE BRAIN: Mildly motion degraded exam. The imaged bilateral internal carotid arteries are patent. The bilateral anterior and middle cerebral arteries are also patent. The vertebrobasilar system and posterior cere bral arteries are widely patent. Dominant left vertebral artery. Fenestrated V4 segment of the right vertebral artery. There is no aneurysm, high-grade stenosis, or proximal branch occlusion identified. Dural sinuses appear patent. Mild polypoid mucosal thickening of the maxillary sinuses. IMPRESSION: Unremarkable CTA of the head. ACT 112: Negative or not required by law. The above report was generated using voice recognition software. It may contain grammatical, syntax o r spelling errors. Electronically signed by: Jhony Muñoz M.D. 07/11/2022 8:40 AM
[2022-07-11] MEDS ORDERED: ONDANSETRON INJ 2 MG/ML 2 ML VIAL IV PRN (08:47)
[2022-07-11] MEDS ORDERED: ACETAMINOPHEN 325 MG TAB PO PRN (08:47)
[2022-07-11] MEDS: lisinopril 10 MG TAB PO SCH (10:09)
[2022-07-11] MEDS: FAMOTIDINE 20 MG TAB PO SCH (10:10)
[2022-07-11] MEDS: MECLIZINE HCL 25 MG TAB PO SCH ×3 (10:18→20:20)
[2022-07-11] MEDS ORDERED: ONDANSETRON INJ 2 MG/ML 2 ML VIAL IV STA (10:50)
--- NOTE | 2022-07-11 10:52 | Hospitalist Progress Note ---
Date of Service July 11, 2022 Assessment & Plan (1) Vertigo: Plan: Presented with now second episode of horizontal vertigo with associated nausea, difficulty with standing/sitting upright due to sensation that he is falling over. Last episode was very short, whereas this is lasting longer. Had MRI brain 3 weeks ago without findings however was without contrast. Will get MRI with contrast, with care to inner ear to further evaluate for pathology. Consult also placed to Neurology. Meclizine and Zofran ordered for symptom control. Labwork otherwise normal with elevated urine specific gravity; encouraged water intake. (2) Nystagmus: Plan: See vertigo (3) Hypertension: Plan: Continue lisinopril. (4) GERD (gastroesophageal reflux disease): Plan: Continue famotidine. Admission and Anticipated Discharge Date Admission Date: July 11, 2022 Subjective Patient still feeling very dizzy (specifically vertiginous), as well as nauseated if he keeps his eyes open too long. He notes a history of a vertigo episode a few weeks ago, similar but only lasted a few minutes to an hour, whereas his symptoms are not improving this time. He reports that the room seems to be spinning to the right. He denies acute numbness or weakness of his upper/lower extremities or face. Notes a several years history of some left ulnar distribution hand tingling, was told he had "carpal tunnel" in the past. Review of Systems Review of Systems: All systems reviewed & are unremarkable except as noted in Subjective Physical Exam Constitutional: WD/WN, vitals as above Respiratory: normal respiratory effort, lungs clear to auscultation Cardiovascular: RRR, no murmur, no edema Gastrointestinal (Abdomen): normal bowel sounds, soft, nontender, no hepatosplenomegaly Skin: no rashes, warm and dry Neurologic: right beating nystagmus, EOMI, PERRL Strength 5/5 and sensation normal in bilateral upper and lower extremities Symmetric facial movements, no focal deficits of the face Normal speech Psychiatric: A+Ox3, euthymic affect Results & Data Results & Data Vital Signs (Past 12 Hours) Vital Signs Temp Pulse Resp BP BP Pulse Ox O2 Del Method 07/11/22 10:19 36.6 C 16 127/78 91 Room Air 07/11/22 06:30 80 20 98 Nasal Cannula 07/11/22 06:30 149/80 H 07/11/22 06:10 142/73 H 07/11/22 06:10 75 16 98 Nasal Cannula 07/11/22 05:00 64 17 97 Nasal Cannula 07/11/22 04:00 75 20 97 Nasal Cannula 07/11/22 05:04 67 07/11/22 01:13 70 15 98 Nasal Cannula 07/11/22 01:13 180/98 H 07/11/22 01:38 83 100 Room Air 07/11/22 01:09 36.5 C 82 18 181/103 H 99 Room Air 07/11/22 01:06 79 O2 Flow Rate 07/11/22 10:19 07/11/22 06:30 2 07/11/22 06:30 07/11/22 06:10 07/11/22 06:10 2 07/11/22 05:00 2 07/11/22 04:00 2 07/11/22 05:04 07/11/22 01:13 2 07/11/22 01:13 07/11/22 01:38 07/11/22 01:09 07/11/22 01:06 PG Care Time/CCT Total # of Minutes Spent Total Time Spent with Patient: Total time spent is greater than 50% in coordination of care (as documented) at patient's floor/unit and/or counseling patient: Coding Level of Care Code None Diagnoses Vertigo R42 Nystagmus H55.00 Hypertension I10 GERD (gastroesophageal reflux disease) K21.9
[2022-07-11] MEDS ORDERED: KETOROLAC TROMETHAMINE 15 MG/ML VIAL IV ONE (11:53)
--- NOTE | 2022-07-11 16:44 | Neurology Consultation ---
Date of Consultation July 11, 2022 Assessment & Plan (1) Vertigo: Impression: Sudden onset vertigo, with right beating horizontal nystagmus without central features, associated nausea, vomiting, imbalance and without additional neurological deficit, which is highly suggestive of left vestibular neuritis. Based on the patient's prior history of vertiginous episodes and some hearing symptoms, new onset [place] disease should be considered in differential. Based on family history of acoustic neuroma, vestibular pontine angle tumors should be investigated. Other posterior fossa central etiologies are less likely but should be considered in differential based on significant gait abnormality, and reported occipital headache. Recommendations: Brain MRI with and without contrast focusing on posterior fossa structures, including cerebellopontine angle tumors, ischemic lesions of brainstem and cerebellum, and demyelinating disorders. Meclizine 50 mg 3 times a day for next few days, then 25 mg 3 times a day for following 1 week. Long-term meclizine usage is not recommended as it might cause suppression of central compensation. If brain MRI comes unremarkable, then the patient can be discharged home in next 24 hours. Outpatient ENT and neurology consultation. I will contact with [facility] neurology to set up an appointment. (2) Nystagmus: Impression: The patient has constant right beating horizontal nystagmus without central features, highly suggestive of left vestibular neuritis. Plan As seen above. Thank you for the consultation. History of Present Illness Reason for Consultation: Vertigo Requesting Physician: Susu Cruz DO Attending Physician: Susu Cruz DO History of Present Illness The patient is a 61-year-old gentleman, who presented to emergency department, with sudden onset of vertigo, nausea, vomiting, and imbalance, which started last night. The patient was laying down, and suddenly noticed spinning sensation of environment. When he tried to walk, he was very unsteady, which induced nausea and recurrent vomiting. He denies obvious hearing impairment or fullness of ear, but he has a long history of bilateral tinnitus as well as reports short lasting popping and hearing impairment on and off for many months. In emergency department, CT angiogram of head and neck as well as head CT were unremarkable. The patient denied additional neurological symptoms including mental status change, facial asymmetry, change of taste, double vision, numbness or weakness. Apparently, the patient had another episode a month ago, with spinning sensation, nausea, and imbalance, which lasted for only couple hours. Since then, he has been having intermittent dizzy feeling without real vertigo. Brain MRI was done 3 weeks ago, after the patient had his first episode of vertigo, which was unremarkable. The patient reports having 2 family members with acoustic neuroma. Another brain MRI with and without contrast focusing on internal acoustic canals and posterior fossa structures was ordered on this admission which is pending. The patient was started on meclizine, but still very vertiginous. Any head movement worsens symptoms including nausea. The patient has persistent right beating horizontal nystagmus, without central features. He reports having cervicalgia and occipital headache for a while, which has not related to current attack. I have reviewed the patient's chart including imaging studies and visualized them personally. I have discussed the case with the patient and answered his questions in detail. Allergies Allergy/AdvReac Type Severity Reaction Status Date / Time ketorolac AdvReac Severe Hallucinati Verified 06/03/22 08:29 Home Medications Medication Instructions Recorded Confirmed Type netarsudil 0.02 %-latanoprost 1 drops ophthalmic (eye) QPM 04/26/19 07/11/22 History 0.005 % eye drops (Rocklatan) cholecalciferol (vitamin D3) 10 2,000 unit PO QAM 04/29/21 07/11/22 History mcg (400 unit) tablet (Vitamin D3) meclizine 25 mg tablet 25 mg PO TID #90 tabs 05/24/22 07/11/22 Rx atorvastatin 10 mg tablet 10 mg PO QPM #90 tabs 05/27/22 07/11/22 Rx omeprazole 20 mg capsule,delayed 20 mg PO QAM #90 caps 05/27/22 07/11/22 Rx release lisinopril 10 mg tablet 10 mg PO QAM #90 tabs 06/13/22 07/11/22 Rx Patient History Medical History Acid reflux Degenerative tear of left medial meniscus Glaucoma HTN (hypertension) Hyperlipidemia Superficial thrombophlebitis hx Surgical History History of colonoscopy History of esophagogastroduodenoscopy (EGD) History of open reduction and internal fixation (ORIF) procedure Left leg History of surgical removal of meniscus of knee S/P hernia surgery inguinal & umbilical repairs S/P left knee arthroscopy (~04/2020) S/P repair of hydrocele HX S/P wisdom tooth extraction HX Family History Father Diabetes Mother Dementia Other No family history of adverse response to anesthesia Denies family history of Ovarian cancer Prostate cancer Myocardial infarction Breast cancer Colorectal cancer Social History Smoking Status: Never smoker Second Hand Exposure: No; Do You Dip or Chew Tobacco: No; Hx Alcohol Use: Yes Alcohol type: beer Alcohol Intake Frequency: 2-3 x/Week Hx Substance Use: No Preferred Language: Maori Communication Ability: Effective Visual Impairment: No Limitations Hearing Ability: Hard of Hearing Dye Jig Operator Required: No Beliefs That Will Affect Care: None marital status: Current Living Situation: Alone Current Living Situation Comment: FRIEND LIVES HERE SOMETIMES current occupational status: employed current occupation: [employer] How many Children do You have: 2 How many Children do You have Comment: daughters Feels Safe at Home: Yes Childhood Exposure to Second-Hand Smoke: No Diet: regular caffeine: No during the past year weight has: remained stable Dental Care, Regularly: Yes Physical Activity Frequency: Daily Seatbelt Use: always Sunscreen Use: No Assistive Devices: Contacts Review of Systems Review of Systems: All systems reviewed & are unremarkable except as noted in HPI & below Physical Exam Physical Exam: General Examination: Constitutional: Well developed person in no acute distress. HENT: Normal exam with inspection. CV: Hearth rhythm is regular. Neck: Supple, no carotid bruits. Lungs: Non-labored and comfortable breathing. Abdomen: Soft, non-tender, non-distended. Skin: No rash or ecchymosis. Extremities: No edema or cyanosis NEUROLOGICAL EXAMINATION: Mental Status: Alert and oriented to place, person and time. Cranial Nerves: II-XII are intact. The patient has persistent nystagmus, horizontal, right beating, which worsens with right gaze. There is no obvious vertical component. Directional nystagmus does not change with different gazes. Funduscopy: Unable to visualize. Motor: 5/5 in all extremities without asymmetry. Tone: Normal without spasticity or rigidity. Sensory: Intact to all sensory modalities. Coordination: No dysmetria with FTN testing. Speech: Fluent. Comprehension is intact. Gait: Normal. Unable to assess. Musculoskeletal: Normal muscle bulk, no atrophy. Results & Data Vital Signs (Past 12 Hours) Vital Signs Temp Pulse Pulse Resp BP BP BP 07/11/22 15:38 36.9 C 81 16 125/77 07/11/22 10:19 36.6 C 16 127/78 07/11/22 06:30 80 20 07/11/22 06:30 149/80 H 07/11/22 06:10 142/73 H 07/11/22 06:10 75 16 07/11/22 05:00 64 17 07/11/22 05:04 67 Pulse Ox O2 Del Method O2 Flow Rate 07/11/22 15:38 95 Room Air 07/11/22 10:19 91 Room Air 07/11/22 06:30 98 Nasal Cannula 2 07/11/22 06:30 07/11/22 06:10 07/11/22 06:10 98 Nasal Cannula 2 07/11/22 05:00 97 Nasal Cannula 2 07/11/22 05:04 Laboratory Results Laboratory Results - last 24 hr 07/11/22 07/11/22 07/11/22 01:14 01:14 01:14 WBC RBC Hgb Hct MCV MCH MCHC RDW Std Deviation RDW Coeff of He Plt Count MPV Immature Gran % (Auto) Neut % (Auto) Lymph % (Auto) [place] % (Auto) Eos % (Auto) Baso % (Auto) Neut # (Auto) Lymph # (Auto) [place] # (Auto) Eos # (Auto) Baso # (Auto) Immature Gran # (Auto) PT INR APTT PTT Ratio Sodium 137 Potassium 4.0 Chloride 104 Carbon Dioxide 24 Anion Gap 9 BUN 21 Creatinine 1.12 Est Cr Clr Drug Dosing 88.6 Est GFR ( Amer) 81.7 Est GFR (Non-Af Amer) 70.5 BUN/Creatinine Ratio 18.8 Glucose 118 H Calcium 8.8 Magnesium 1.9 Total Bilirubin 1.0 AST 25 ALT 27 Alkaline Phosphatase 84 Troponin I High Sens 3.9 Total Protein 7.1 Albumin 4.3 Globulin 2.8 Albumin/Globulin Ratio 1.5 Vitamin B12 195 TSH 2.728 Urine Color Urine Appearance Urine pH Ur Specific [place] Urine Protein Urine Glucose (UA) Urine Ketones Urine Blood Urine Nitrite Urine Bilirubin Urine Urobilinogen Ur Leukocyte Esterase Urine Opiates Screen Ur Methadone, Qual Urine Barbiturates Ur Phencyclidine (PCP) U Amphetamin/Meth Scrn MDMA (Ecstasy) Screen U Benzodiazepines Scrn Ur Cocaine Metabolite U Marijuana (THC) Screen Ethyl Alcohol mg/dL SARS-CoV-2, RNA, NAAT 07/11/22 07/11/22 07/11/22 01:14 01:14 01:28 WBC 9.44 RBC 4.83 Hgb 15.8 Hct 43.8 MCV 90.7 MCH 32.7 MCHC 36.1 H RDW Std Deviation 40.5 RDW Coeff of He 12.3 Plt Count 204 MPV 9.8 Immature Gran % (Auto) 0.6 Neut % (Auto) 63.1 Lymph % (Auto) 26.1 [place] % (Auto) 8.3 Eos % (Auto) 1.5 Baso % (Auto) 0.4 Neut # (Auto) 5.96 Lymph # (Auto) 2.46 [place] # (Auto) 0.78 H Eos # (Auto) 0.14 Baso # (Auto) 0.04 Immature Gran # (Auto) 0.06 PT 11.4 INR 1.0 APTT 23.5 PTT Ratio 0.8 Sodium Potassium Chloride Carbon Dioxide Anion Gap BUN Creatinine Est Cr Clr Drug Dosing Est GFR ( Amer) Est GFR (Non-Af Amer) BUN/Creatinine Ratio Glucose Calcium Magnesium Total Bilirubin AST ALT Alkaline Phosphatase Troponin I High Sens Total Protein Albumin Globulin Albumin/Globulin Ratio Vitamin B12 TSH Urine Color Urine Appearance Urine pH Ur Specific [place] Urine Protein Urine Glucose (UA) Urine Ketones Urine Blood Urine Nitrite Urine Bilirubin Urine Urobilinogen Ur Leukocyte Esterase Urine Opiates Screen Ur Methadone, Qual Urine Barbiturates Ur Phencyclidine (PCP) U Amphetamin/Meth Scrn MDMA (Ecstasy) Screen U Benzodiazepines Scrn Ur Cocaine Metabolite U Marijuana (THC) Screen Ethyl Alcohol mg/dL < 10.0 SARS-CoV-2, RNA, NAAT 07/11/22 07/11/22 07/11/22 04:20 04:20 06:10 WBC RBC Hgb Hct MCV MCH MCHC RDW Std Deviation RDW Coeff of He Plt Count MPV Immature Gran % (Auto) Neut % (Auto) Lymph % (Auto) [place] % (Auto) Eos % (Auto) Baso % (Auto) Neut # (Auto) Lymph # (Auto) [place] # (Auto) Eos # (Auto) Baso # (Auto) Immature Gran # (Auto) PT INR APTT PTT Ratio Sodium Potassium Chloride Carbon Dioxide Anion Gap BUN Creatinine Est Cr Clr Drug Dosing Est GFR ( Amer) Est GFR (Non-Af Amer) BUN/Creatinine Ratio Glucose Calcium Magnesium Total Bilirubin AST ALT Alkaline Phosphatase Troponin I High Sens Total Protein Albumin Globulin Albumin/Globulin Ratio Vitamin B12 TSH Urine Color Yellow Urine Appearance Clear Urine pH 8.5 H Ur Specific [place] 1.045 H Urine Protein Negative Urine Glucose (UA) Negative Urine Ketones Negative Urine Blood Negative Urine Nitrite Negative Urine Bilirubin Negative Urine Urobilinogen Negative Ur Leukocyte Esterase Negative Urine Opiates Screen Neg Ur Methadone, Qual Neg Urine Barbiturates Neg Ur Phencyclidine (PCP) Neg U Amphetamin/Meth Scrn Neg MDMA (Ecstasy) Screen Neg U Benzodiazepines Scrn Neg Ur Cocaine Metabolite Neg U Marijuana (THC) Screen Neg Ethyl Alcohol mg/dL SARS-CoV-2, RNA, NAAT NEGATIVE Diagnostic Findings Chest X-Ray 07/11/22 01:11 XR chest 1V portable CLINICAL HISTORY: dizziness TECHNIQUE: Single frontal radiograph of the chest was obtained. Comparison: None available at the time of this dictation. FINDINGS: No lines and tubes are seen. Cardiomegaly is noted. The lungs are clear. No evidence of pleural effusion or pneumothorax. IMPRESSION: No acute chest disease. ACT 112: Negative or not required by law. Electronically signed by: Ponce Benoit M.D. 07/11/2022 7:[address] 07/11/22 01:11 Exam(s): CT HEAD Without Contrast EXAM: CT Head Without Intravenous Contrast CLINICAL HISTORY: Nystagmus and dizziness. TECHNIQUE: Axial computed tomography images of the head/brain without intravenous contrast. CTDI is 35.07 mGy and DLP is 614.27 mGy-cm. Automated exposure control was utilized for the study. A dose lowering technique was utilized adhering to the principles of ALARA. COMPARISON: MRI brain 06/14/2022 FINDINGS: Brain: No intracranial hemorrhage, mass-effect or midline shift. No abnormal extra axial fluid. No evidence of acute infarct. Mild periventricular white matter hypodensities are most consistent with chronic microangiopathy. Ventricles: Unremarkable. No ventriculomegaly. Bones/joints: Unremarkable. No acute fracture. Soft tissues: Unremarkable. Sinuses: Unremarkable as visualized. No acute sinusitis. Mastoid air cells: Unremarkable as visualized. No mastoid effusion. IMPRESSION: No acute intracranial finding. Electronically signed by: Lety Fay MD 07/11/22 03:23 AM Head CTA 07/11/22 01:15 CT angio head w con CLINICAL HISTORY: 61 years-old Male with nystagmus, dizziness. Acute dizziness with nausea COMPARISON STUDY: Head CT of same day, brain MRI 06/14/2022 TECHNIQUE: Following the IV administration of 112 cc of Optiray, CT angiogram of the brain was performed from the skull base to the vertex. Images are reviewed in the axial, sagittal, and coronal planes. 3-D MIPS images are created and assessed. IV contrast was administered without complication. All measurements were obtained according to NASCET criteria. A dose lowering technique was utilized adhering to the principles of ALARA. FINDINGS: CT ANGIOGRAM OF THE BRAIN: Mildly motion degraded exam. The imaged bilateral internal carotid arteries are patent. The bilateral anterior and middle cerebral arteries are also patent. The vertebrobasilar system and posterior cerebral arteries are widely patent. Dominant left vertebral artery. Fenestrated V4 segment of the right vertebral artery. There is no aneurysm, high-grade stenosis, or proximal branch occlusion identified. Dural sinuses appear patent. Mild polypoid mucosal thickening of the maxillary sinuses. IMPRESSION: Unremarkable CTA of the head. ACT 112: Negative or not required by law. The above report was generated using voice recognition software. It may contain grammatical, syntax or spelling errors. Electronically signed by: Jhony Muñoz M.D. 07/11/2022 8:40 AM Neck CTA 07/11/22 01:15 Exam(s): CTA NECK With Contrast IV Amt: 112ml Optiray 320 EXAM: CT Angiography Neck With Intravenous Contrast CLINICAL HISTORY: Nystagmus and dizziness. TECHNIQUE: Routine carotid CT angiography protocol was performed with intravenous contrast. NASCET criteria using the distal ICAs for comparison were used for evaluation of stenoses. CTDI is 62.28 mGy and DLP is 655.02 mGy-cm. Automated exposure control was utilized for the study. A dose lowering technique was utilized adhering to the principles of ALARA. MIP reconstructed images were created and reviewed. CONTRAST: Patient received 112ml Optiray 320 of IV contrast COMPARISON: None. FINDINGS: VASCULATURE: Right common carotid artery: Unremarkable. No occlusion or significant stenosis. No dissection. Right internal carotid artery: Mild atherosclerosis of the right carotid bulb. No significant stenosis. No dissection. Right external carotid artery: Unremarkable. No occlusion. Right vertebral artery: Unremarkable. No occlusion or significant stenosis. No dissection. Left common carotid artery: Unremarkable. No occlusion or significant stenosis. No dissection. Left internal carotid artery: Mild atherosclerosis of the left carotid bulb. No significant stenosis. No dissection. Left external carotid artery: Unremarkable. No occlusion. Left vertebral artery: Unremarkable. No occlusion or significant stenosis. No dissection. NECK: Bones/joints: Unremarkable. Soft tissues: Unremarkable. Lung apices: Clear. CAROTID STENOSIS REFERENCE USING NASCET CRITERIA: % ICA stenosis = (1 - narrowest ICA diameter/diameter of distal cervical ICA) x 100. Mild - <50% stenosis. Moderate - 50-69% stenosis. Severe - 70-94% stenosis. Near occlusion - 95-99% stenosis. Occluded - 100% stenosis. IMPRESSION: No acute findings in the arteries of the neck. Electronically signed by: Lety Fay MD 07/11/22 03:26 AM Medications Administered Reviewed
[2022-07-11] MEDS ORDERED: GADOBUTROL 65ML VIAL IV ONE (17:27)
--- NOTE | 2022-07-11 18:09 | Magnetic Resonance Report ---
MRI OF THE BRAIN COMBO INTERNAL AUDITORY CANAL PROTOCOL CLINICAL HISTORY: Vertigo. COMPARISON STUDY: CT of the brain dated 07/11/2022. MRI of the brain dated 06/14/2022. TECHNIQUE: MRI of the brain was performed utilizing various T1 and T2-weighted sequences in the axial , sagittal, and coronal planes. Contrast-enhanced sequences were acquired following the administratio n of 10.5 cc of Gadavist. Additional high-resolution imaging was performed through the skull base bot h pre and post contrast to assess the internal auditory canals. FINDINGS: Brain parenchyma: The brain parenchyma is normal in appearance. There is no hemorrhage or mass effect . There is no restricted diffusion to suggest acute ischemia. No enhancing mass lesion is identified on the postcontrast images. Rangel-white matter differentiation is preserved. No extra-axial fluid nasima ection is seen. The cerebellar tonsils are normal in configuration. Ventricles, sulci, and cisterns: Normal in configuration. Internal auditory canals: No enhancing mass lesion is seen in the cerebellopontine angle bilaterally. There is no mass or abnormal enhancement along the course of the internal auditory canals. The middl e ear structures are normal as visualized. The trigeminal nerves are normal and symmetric. Pituitary and sella: Unremarkable. Intracranial vasculature: Normal flow voids are maintained at the skull base. Orbits: The bony orbits are grossly intact. Orbital contents are normal in appearance. Sinuses and mastoids: There is mild mucosal thickening within the maxillary antra. The remaining para nasal sinuses and the mastoid air cells are clear. Calvarium: Unremarkable. Cervical cord: Partially visualized cervical spinal cord is normal in morphology and signal intensity . IMPRESSION: 1. No acute intracranial abnormality. 2. Normal MRI examination of the internal auditory canals. ACT 112: Negative or not required by law. Electronically signed by: Flavio Norton M.D. 07/11/2022 6:06 PM
[2022-07-11] MEDS ORDERED: ATORVASTATIN 10 MG TAB PO SCH (21:00)
[2022-07-11] MEDS ORDERED: CYCLOBENZAPRINE HCL 5 MG TAB PO SCH (21:00)
[2022-07-12] MEDS: FAMOTIDINE 20 MG TAB PO SCH (08:17)
[2022-07-12] MEDS: lisinopril 10 MG TAB PO SCH (08:17)
[2022-07-12] MEDS: MECLIZINE HCL 25 MG TAB PO SCH (08:18)
--- NOTE | 2022-07-12 11:17 | Discharge Summary ---
Discharge Summary Date of Service July 12, 2022 Notes For Next Care Provider Vestibular therapy for vestibular neuritis. Family history of acoustic neuroma but no evidence of such and no CVA on MRI. Meclizine TID scheduled for 2 days then as needed. Discussed adequate hydration for element of BPPV suspected. Recommended arm cuff rather than wrist cuff for BP measuring, follow up HTN with PCP (normotensive on day of discharge). Admission HPI Per Admitting Provider Otilio Bowen is a pleasant 61yo female with history of HTN, HLP and GERD presenting with acute onset of dizziness. Patient was sitting on the couch around 22:00 when he developed acute onset of dizziness - like the room was spinning - as well as nausea, diaphoresis. He tried to go to bed and had persistence of symptoms therefore came to the ER. He denies fever but has had some chills. Denies chest pain. No positional component. Patient had similar symptoms approximately 1 month ago. He had an outpatient workup including a normal MRI brain on 06/14/22. He was given Meclizine at that time and had resolution of symptoms. In the ER patient is afebrile, hypertensive ER Course: Zofran Ativan Meclizine Admission Exam Per Admitting Provider General: patient resting comfortably, NAD, non-toxic in appearance, AA&O x 4 Skin: warm, dry, intact, no rashes or lesions HEENT: NC/AT, PERRL, EOMI, anicteric sclera, conjunctiva without injection, external ear normal to inspection and nontender, nares patent, moist mucus membranes, dentition intact, no oropharyngeal lesions, neck supple, trachea midline, no LAD, no thyromegaly, no JVD, +nystagmus Heart: +S1/S2, regular, no m/r/g Lungs: equal air entry bilaterally, no rales/rhonchi/wheezes Abd: +BS, soft, NT/ND, no masses/organomegaly/ascites Ext: warm, 2+ pulses in UE/LE bilaterally, no clubbing/cyanosis or edema Neuro: nonfocal, patient AA&O x 4, speech intact, no facial droop, moving all extremities on command with equal strength 5/5 Principal Dx & Hospital Course #1 = Principal Diagnosis (1) Vertigo: Presented with episode of horizontal vertigo with associated nausea, difficulty with standing/sitting upright due to sensation that he is falling over. Last episode a few weeks ago was very short, whereas this lasted longer. Had MRI brain 3 weeks ago without findings however was without contrast. MRI with contrast, with care to inner ear without evidence of acoustic neuroma, CVA, other concerning pathology. Meclizine and Zofran ordered for symptom control. Labwork otherwise normal with elevated urine specific gravity; encouraged water intake at home given this episode happened a day after working outside in the sun all day. Vestibular therapy prescription given to patient. Patient's symptoms significantly improved at time of discharge. (2) Nystagmus: See vertigo, resolved. (3) Hypertension: Continue lisinopril. (4) GERD (gastroesophageal reflux disease): Continue famotidine. Discharge Exam Constitutional WD/WN, vitals as above Neurologic No nystagmus, some brief vertigo with rapidly turning head left Psychiatric A+Ox3, euthymic affect Updated Medication List Medication Instructions Recorded Confirmed Type netarsudil 0.02 %-latanoprost 1 drops ophthalmic (eye) QPM 04/26/19 07/11/22 History 0.005 % eye drops (Rocklatan) cholecalciferol (vitamin D3) 10 2,000 unit PO QAM 04/29/21 07/11/22 History mcg (400 unit) tablet (Vitamin D3) atorvastatin 10 mg tablet 10 mg PO QPM #90 tabs 05/27/22 07/11/22 Rx omeprazole 20 mg capsule,delayed 20 mg PO QAM #90 caps 05/27/22 07/11/22 Rx release lisinopril 10 mg tablet 10 mg PO QAM #90 tabs 06/13/22 07/11/22 Rx meclizine 25 mg tablet 25 mg PO TID #90 tabs 07/12/22 Rx Hospital Stay Data Consultations 07/11/22 06:36 ED Decision to Admit Stat 07/11/22 10:50 Consult Neurology Routine Diagnostic Imagining Performed 07/11/22 01:11 CT head/brain wo con Stat 07/11/22 01:15 CTA head w con [CT angio head w con] Stat CTA neck with con [CT angio neck with con] Stat 07/11/22 15:01 MR brain IAC wo/w con Routine Discharge Instructions Given to Patient (Per Discharging Provider) You were admitted for ongoing evaluation of vertigo. You had a specialized MRI to look for abnormalities or masses of the inner ear, which there were not. There was also no evidence of stroke. You were given meclizine and with time your symptoms improved. We sent you with a prescription for vestibular therapy, with the information provided below. I also sent meclizine to [facility] in [place]. If you have worsening of symptoms or other acute medical concerns please call your doctor or seek urgent medical attention. [id number], [place] [address] Total Time Total Time Spent Total Time Spent (In Minutes): 35 min Coding Level of Care Code 48943 INP/OBS DISCH >30 MIN Diagnoses Vertigo R42 Nystagmus H55.00 Hypertension I10 GERD (gastroesophageal reflux disease) K21.9
[2022-07-12] MEDS ORDERED: NETARSUDIL MESYLAT OP SCH (21:00)
[2022-07-12] MEDS ORDERED: LATANOPROST OP SCH (21:00)
--- NOTE | 2022-07-12 22:37 | Electrocardiogram Report ---
Test Reason : Blood Pressure : / mmHG Vent. Rate : 071 BPM Atrial Rate : 071 BPM P-R Int : 190 ms QRS Dur : 094 ms QT Int : 390 ms P-R-T Axes : 001 014 010 degrees QTc Int : 423 ms Sinus rhythm with occasional Premature ventricular complexes Otherwise normal ECG When compared with ECG of 27-MAR-2020 14:09, Premature ventricular complexes are now Present Confirmed by Francois Pham ([id number]) on 07/12/2022 10:37:24 PM Referred By: REFERRED SELF Confirmed By:Francois Pham
== END 2022-07-12 12:42 | disposition home or self-care (01) | DRG 149 ==
LOC: ED 00:58 → SUATTDRO 06:45 → 3N 06:45